=== PATIENT | female | born 1980 | race Caucasian/White ===

== ENCOUNTER → 2017-07-15 12:30 | Outpatient (CLI) | payer SELFPAY ==
--- NOTE | 2017-07-15 12:35 | US_ITS ---
STUDY: SECOND AND THIRD TRIMESTER OBSTETRICAL ULTRASOUND REASON FOR EXAM: Female, 37 years old. Follow-up of placenta previa. LMP: 03/02/2017 TECHNIQUE: Transabdominal PRIOR ULTRASOUND: None. FINDINGS: There is a single intrauterine fetus. The fetus is in a breech presentation. There is demonstrated cardiac activity with a heart rate of 160 bpm. There is a normal amniotic fluid volume. The largest amniotic fluid pocket measures 5.7 cm. The placenta is posterior and low lying but not previa in location. The edge of the placenta is 2 cm from the cervix. There are Grade 1 placental changes. The cervix measures 3.9 cm in length. The adnexal regions are not visualized. BIOMETRY: BPD: 4.3: 19 weeks, 0 days HC: 16.5: 19 weeks, 2 days AC: 13.9: 19 weeks, 3 days FL: 2.9: 18 weeks, 6 days CI: FL/BPD: FL/HC: FL/AC: HC/AC: age by current US: 19 weeks, 1 days. VIKRAM by current US: 12/08/2017. Estimated weight: 273 grams, +/- 40 grams, 34 %. age by prior US: weeks, days. VIKRAM by prior US: . Age by LMP: 19 weeks, 2 days. VIKRAM by LMP: 12/07/2017. ANATOMY: Gender: Male Cranium: Normal lateral ventricles. Normal choroid plexus. Normal cerebellum. Normal cisterna magna. Normal face, nose and lips. Chest: Normal 4-chamber heart. Abdomen/Pelvis: Normal diaphragm. The stomach is non-visualized. Normal abdominal wall. Normal cord insertion. Normal 3 vessel cord. Normal kidneys. Normal bladder. Spine: Normal cervical spine. Normal thoracic spine. Normal lumbar spine. Normal sacrum. Extremities: Normal bilateral upper extremities. Normal bilateral lower extremities. US/OB Anatomy Scan IMPRESSION: Single live fetus in a vertex presentation. No demonstrated anatomic abnormality except the stomach is not seen. Placenta is grade 1 and is low-lying, but no placenta previa. Cervix is closed. age by current US: 19 weeks, 1 days. VIKRAM by current US: 12/08/2017. Estimated weight: 273 grams, +/- 40 grams, 34 %. Electronically Signed: Manuel Luevano MD at 15:07 EDT , Service support ,
== END ==
PROVIDERS: Visit Provider Obstetrics & Gynecology
DX: O44.02 Complete placenta previa NOS or without hemorrhage, second trimester (principal); Z3A.19 19 weeks gestation of pregnancy
CPT/HCPCS: 76805

== ENCOUNTER → 2017-09-10 12:04 | Outpatient (CLI) | payer SELFPAY ==
--- NOTE | 2017-09-10 12:08 | US_ITS ---
STUDY: SECOND AND THIRD TRIMESTER OBSTETRICAL ULTRASOUND - LIMITED REASON FOR EXAM: Female, 37 years old. Follow-up placenta previa. LMP: March 02, 2017. PRIOR ULTRASOUND: July 15, 2017. TECHNIQUE: Transabdominal ultrasound evaluation was performed. FINDINGS: There is a single intrauterine fetus. The fetus is in a variable presentation. There is demonstrated cardiac activity with a heart rate of 142 bpm. There is a normal amniotic fluid volume. The largest amniotic fluid pocket measures 4.47 cm. The amniotic fluid index (MALIA) is 14.2 cm. The placenta is posterior in location and is not low lying. There are Grade 0 placental changes. The cervix measures 3.83 cm in length. BIOMETRY: BPD: 6.89 cm: 27 weeks, 5 days HC: 26.28 cm: 28 weeks, 5 days AC: 24.31 cm: 28 weeks, 5 days FL: 5.04 cm: 27 weeks, 1 days Age by LMP: 27 weeks, 3 days. VIKRAM by LMP: December 07, 2017. age by prior US: 27 weeks, 2 days. VIKRAM by prior US: December 08, 2017. age by current US: 28 weeks, 1 days. VIKRAM by current US: December 02, 2017. Estimated weight: 1167 grams, +/- 170 grams, 61 percentile. US/OB Limited With Biometrics IMPRESSION: 1. Live single intrauterine at 28 weeks, 1 day. VIKRAM is December 02, 2017. There is been adequate interval growth since the prior ultrasound. 2. EFW of 1161 g. 3. MALIA of 14.2 cm. 4. Posterior grade 0 placenta. There is no evidence of low-lying placenta or placenta previa. 5. Variable presentation. Electronically Signed: Elver Aguilar DO at 14:34 EDT Tel [phone], Service support ,
== END ==
PROVIDERS: Visit Provider Obstetrics & Gynecology
DX: O44.02 Complete placenta previa NOS or without hemorrhage, second trimester (principal); O09.90 Supervision of high risk pregnancy, unspecified, unspecified trimester; Z3A.00 Weeks of gestation of pregnancy not specified
CPT/HCPCS: 76816

== ENCOUNTER 2017-12-07 10:00 | Inpatient (IN) | payer SELFPAY ==
[2017-12-07] MEDS: Lactated Ringers 1,000 ML 999 ML IV (10:13)
--- NOTE | 2017-12-07 10:28 | PCM.HP.OB ---
- Problem List (1) Active labor Status: Acute (2) macrosomia Status: Acute (3) Supervision of high risk , antepartum Status: Acute Comment: cocare with carol singletary (4) Family history of nephrotic syndrome Status: Acute History Date of Admission: 12/07/17 Final VIKRAM: 12/07/17 Gestational age: 40 Weeks and 0 Days History of this : This is a 37 year-old, at 40 weeks gestational age presents completely dilated with high presenting part. EFW is 4500 g on bedside ultrasound today. she was planning a home but the mosaic layer referred her here for delivery due to concern for a large baby. Allergies No Known Allergies Allergy (Verified 07/15/17 11:56) Home Medications: Home Medications Vits [Prenatabs FA] 1 tab PO DAILY 05/23/16 Smoking Status: Never smoker Alcohol: None Number of Fetus(es): 1 Heart Tracin mod abhishek no decels cat I tracing TOCO Analysis: q 2 days History Past Pregnancies: Past Pregnancies see attached history Delivery Date Name GA/Weeks Outcome Route Weight Gender Labor Length Anesthesia Delivery Location Provider FOB Labs: Mom's Problem List Problem Status Onset Code Active labor Acute macrosomia Acute O36.60X0 Mom's Labs & Results 12/07/17 12/07/17 12/07/17 10:18 10:18 10:18 WBC Pending RBC Pending Hgb Pending Hct Pending MCV Pending MCH Pending MCHC Pending RDW Pending RDW Differential Pending Plt Count Pending Neut % (Auto) Pending Absolute Neuts (auto) Pending Total Counted Pending Hemoglobin A1c Pending Blood Type Pending Antibody Screen Pending Social History Alleged father James Babb Smoking No Smoking Status Never smoker Expected Delivery Method: Spontaneous Vaginal, Primary Section Review of Systems Constitutional: Denies: Fever, Malaise Eyes: Denies: Blurred vision, Vision Change HEENT: Denies: Head Aches, Visual Changes Cardiovascular: Denies: Chest Pain, Palpitations Respiratory: Denies: Cough, Shortness of Breath, Wheezing Gastrointestinal: Reports: Abdominal Pain. Denies: Diarrhea, Nausea, Vomiting Genitourinary: Denies: Dysuria, Hematuria Musculoskeletal: Denies: Joint Pain, Muscle pain Skin: Denies: Lesions, Rash Neurological: Denies: Blurred vision, Focal weakness, Headaches Psychiatric: Denies: Anxiety, Depression Endocrine: Denies: Heat/ Cold Intolerance Hematologic/ Lymphatic: Denies: Easy Bruising, Easy Bleeding Physical Exam General: Alert, Cooperative, No apparent distress HEENT: Atraumatic, Normocephalic. Negative for: Thyromegaly, Lymphadenopathy Cardiovascular: Regular rate Lungs: Normal air movement Abdomen: Soft, Non Tender, Gravid Neurological: Deep Tendon Reflexes 2+/4 and Symmetrical, Neuro grossly intact. Negative for: Clonus SPICE ROOM WORKER: Normal external genitalia. Negative for: Vulvar lesions Estimated gestational size: Appropriate for gestational size Presentation: Cephalic Cervix Dilation (cm): 10 Assessment/Plan All Active Problems (Last Reviewed 07/15/17 @ 11:55 by Marilyn Mccormack) Active labor (Acute) macrosomia (Acute) Supervision of high risk , antepartum (Acute) Family history of nephrotic syndrome (Acute) Placenta previa antepartum in second trimester (Resolved) Prematurity of fetus (Resolved) This is a 37 year-old, at 40 weeks gestational age completely dilated discussed with patient- previous 8lb 15 ounces vaginal delivery with no shoulder dystocia, EFW 4500g and she is low risk for diabetes, patient has still intact membranes, so i discussed rupturing her and attempt at vaginal delivery, if minima ldescent will recommend primary cs. discussed low risk for shoulder dystocia and guidelines state primary cs should be recommended if 5000g EFW and hers is below this. patient and agree to a trial of pushing. patient previously declined labs, had normal anatomy scan. co care with mosaic layer carol singletary
--- NOTE | 2017-12-07 10:32 | HP.PCM_ITS ---
- Problem List (1) Active labor Status: Acute (2) macrosomia Status: Acute (3) Supervision of high risk , antepartum Status: Acute Comment: cocare with carol singletary (4) Family history of nephrotic syndrome Status: Acute History Date of Admission: 12/07/17 Final VIKRAM: 12/07/17 Gestational age: 40 Weeks and 0 Days History of this : This is a 37 year-old, at 40 weeks gestational age presents completely dilated with high presenting part. EFW is 4500 g on bedside ultrasound today. she was planning a home but the core laying machine operator referred her here for delivery due to concern for a large baby. Allergies No Known Allergies Allergy (Verified 07/15/17 11:56) Home Medications: Home Medications Vits [Prenatabs FA] 1 tab PO DAILY 05/23/16 Smoking Status: Never smoker Alcohol: None Number of Fetus(es): 1 Heart Tracin mod abhishek no decels cat I tracing TOCO Analysis: q 2 days History Past Pregnancies: Past Pregnancies see attached history Delivery Date Name GA/Weeks Outcome Route Weight Gender Labor Length Anesthesia Delivery Location Provider FOB Labs: Mom's Problem List Problem Status Onset Code Active labor Acute macrosomia Acute O36.60X0 Mom's Labs & Results 12/07/17 12/07/17 12/07/17 10:18 10:18 10:18 WBC Pending RBC Pending Hgb Pending Hct Pending MCV Pending MCH Pending MCHC Pending RDW Pending RDW Differential Pending Plt Count Pending Neut % (Auto) Pending Absolute Neuts (auto) Pending Total Counted Pending Hemoglobin A1c Pending Blood Type Pending Antibody Screen Pending Social History Alleged father James Babb Smoking No Smoking Status Never smoker Expected Delivery Method: Spontaneous Vaginal, Primary Section Review of Systems Constitutional: Denies: Fever, Malaise Eyes: Denies: Blurred vision, Vision Change HEENT: Denies: Head Aches, Visual Changes Cardiovascular: Denies: Chest Pain, Palpitations Respiratory: Denies: Cough, Shortness of Breath, Wheezing Gastrointestinal: Reports: Abdominal Pain. Denies: Diarrhea, Nausea, Vomiting Genitourinary: Denies: Dysuria, Hematuria Musculoskeletal: Denies: Joint Pain, Muscle pain Skin: Denies: Lesions, Rash Neurological: Denies: Blurred vision, Focal weakness, Headaches Psychiatric: Denies: Anxiety, Depression Endocrine: Denies: Heat/ Cold Intolerance Hematologic/ Lymphatic: Denies: Easy Bruising, Easy Bleeding Physical Exam General: Alert, Cooperative, No apparent distress HEENT: Atraumatic, Normocephalic. Negative for: Thyromegaly, Lymphadenopathy Cardiovascular: Regular rate Lungs: Normal air movement Abdomen: Soft, Non Tender, Gravid Neurological: Deep Tendon Reflexes 2+/4 and Symmetrical, Neuro grossly intact. Negative for: Clonus FLOUR BLENDER: Normal external genitalia. Negative for: Vulvar lesions Estimated gestational size: Appropriate for gestational size Presentation: Cephalic Cervix Dilation (cm): 10 Assessment/Plan All Active Problems (Last Reviewed 07/15/17 @ 11:55 by Marilyn Mccormack) Active labor (Acute) macrosomia (Acute) Supervision of high risk , antepartum (Acute) Family history of nephrotic syndrome (Acute) Placenta previa antepartum in second trimester (Resolved) Prematurity of fetus (Resolved) This is a 37 year-old, at 40 weeks gestational age completely dilated discussed with patient- previous 8lb 15 ounces vaginal delivery with no shoulder dystocia, EFW 4500g and she is low risk for diabetes, patient has still intact membranes, so i discussed rupturing her and attempt at vaginal delivery, if minima ldescent will recommend primary cs. discussed low risk for shoulder dystocia and guidelines state primary cs should be recommended if 5000g EFW and hers is below this. patient and agree to a trial of pushing. patient previously declined labs, had normal anatomy scan. co care with core laying machine operator carol singletary
[2017-12-07 10:38] LABS: Absolute Lymphocyte Count 0.94 X10^3/ul (0.83-4.51); Absolute Neutrophil Count 17.2 X10^3/uL (2.0-7.7); Basophil# 0.01 X10^3/uL; Basophil% 0.1 % (0-1); Hematocrit 40.6 % (37-47); Hemoglobin 13.8 g/dl (12.0-15.0); Lymphocyte # 0.94 X10^3/ul (4.0); Mean Corpuscular Hgb 31.7 pg (27.0-32.0); Mean Corpuscular Volume 93.1 fL (81-99); Mean Platelet Vol. 12.8 fl (6.2-12.0); Monocyte# 0.75 X10^3/uL; Neutrophil # 17.16 X10^3/uL (2.7-7.7); Neutrophil % 90.7 % (47-70); Platelet Count 117 K/mm3 (150-450); RBC Distribution Width CV 14.1 % (11.6-14.6); RBC Distribution Width SD 47.8 fl (35.1-43.9); Red Blood Count 4.36 M/mm3 (4.2-5.4); White Blood Count 18.9 K/mm3 (4.4-11.0)
[2017-12-07 10:40] LABS: POSITIVE COUNT NO; POSITIVE DIFFERENTIAL NO; POSITIVE MORPHOLOGY NO
[2017-12-07 11:01] LABS: Hemoglobin A1c 5.4 % (4.2-6.3)
[2017-12-07] MEDS: Oxytocin 10 UNITS/ML Vial IM (11:20)
--- NOTE | 2017-12-07 11:23 | PCM.OB.VAG ---
- Problem List (1) Active labor Status: Acute (2) macrosomia Status: Acute (3) Supervision of high risk , antepartum Status: Acute Comment: cocare with carol singletary (4) Family history of nephrotic syndrome Status: Acute Vaginal Delivery Maternal Presentation: Active Labor presents IAL completely dilated suspect macrosomia Amniotic Membrane Rupture Type: Artificial Amniotic Fluid Description: Clear Final VIKRAM: 12/07/17 Gestational age: 40 Weeks and 0 Days Surgery/ Procedure Performed: Spontaneous Vaginal Delivery Type of Anesthesia: None Description of Procedure: Patient began pushing and delivered the head in the TYLER presentation. The head was delivered atraumatically. The anterior and posterior shoulders delivered without complication followed by the rest of the and the infant was placed on the maternal abdomen. Delayed cord clamping was employed for approximately 60 seconds. Cord was clamped and cut and gentle traction was applied to the cord and the placenta delivered spontaneously immediately following it was noted to be intact with three-vessel cord. The perineum and vagina were inspected and noted to have no laceration. EBL was 100 cc. Patient and tolerated delivery well. Presentation: TYLER Placental Delivery Description: Spontaneous Placenta Disposition: [facility] Cord Entanglement: None Estimated Blood Loss: 100 A gender: Male Episiotomy Description: None Laceration: None Medications given after delivery: IV Pitocin Complications: None
[2017-12-07 11:39] VITALS: BMI 32.9
[2017-12-07] MEDS: Carboprost Tromethamine 250 MCG/ML Ampul IM (12:10)
[2017-12-07 12:43] LABS: Group B Strep DNA By PCR Negative (Negative); Internal Control PASS; Probe Check PASS; Specimen Processing Control PASS
[2017-12-07 12:45] LABS: Chlamydia Trachomatis by PCR Negative (Negative); Neisserai gonorrhoeae by PCR Negative (Negative); Probe Check PASS; Sample Adequacy Control PASS; Specimen Processing Control PASS
[2017-12-07] MEDS: Naproxen 250 MG Tablet PO (13:07)
[2017-12-07 13:15] VITALS: BP 153/82; PULSE 111; RESP 18; TEMP 36.2
--- NOTE | 2017-12-07 14:48 | NURSING ---
HIV not done this , previous labs drawn in hospital non reactive.
[2017-12-07 17:40] VITALS: BP 144/86; PULSE 95; RESP 18; TEMP 36.6
[2017-12-07 20:15] VITALS: BP 125/72; PULSE 105; RESP 16; TEMP 37
[2017-12-07] MEDS: Acetaminophen 325 MG Tablet PO (20:21)
[2017-12-08] VITALS: BP 127/72; PULSE 91; RESP 16; TEMP 36.9
[2017-12-08 04:00] VITALS: BP 131/80; PULSE 93; RESP 16; TEMP 36.4
[2017-12-08 08:30] VITALS: BP 134/78; PULSE 105; RESP 18; TEMP 36.8
[2017-12-08] MEDS: Prenatal Vits Tablet 1 TABLET PO (10:55)
[2017-12-08 14:50] VITALS: BP 128/72; PULSE 100; RESP 18; TEMP 36.3
--- NOTE | 2017-12-08 16:00 | PCM.PN.OB ---
Patient Problems: Active and Suspected Problems (Last Reviewed 07/15/17 @ 11:55 by Marilyn Mccomrack) Active labor (Acute) macrosomia (Acute) Subjective: doing well n ocp sob n v, having some elft foot drop that is improving spontaneously, states she felt a zing in her leg when she was pushing and pulling back on her knees and it has hurt since. - Physical Exam General: Alert, Oriented x3 Vital Signs Temp Pulse Resp BP 98.3 F 105 H 18 134/78 H 12/08/17 08:30 12/08/17 08:30 12/08/17 08:30 12/08/17 08:30 Oxygen Delivery Method Room Air Weight: 180 lb Body Mass Index (BMI) 32.9 Intake and Output for Last 24 Hours 12/06/17 12/07/17 12/08/17 23:59 23:59 23:59 Intake Total 400 / 400 Output Total 450 / 450 Balance -50 / -50 Medical Necessity - Tobacco Use Smoking Status: Never smoker Assessment/Plan All Active Problems (Last Reviewed 07/15/17 @ 11:55 by Marilyn Mccormack) Active labor (Acute) macrosomia (Acute) Supervision of high risk , antepartum (Acute) Family history of nephrotic syndrome (Acute) Placenta previa antepartum in second trimester (Resolved) Prematurity of fetus (Resolved) s/p routine care dc home tomorrow, monitor neuro symptoms but improving
--- NOTE | 2017-12-08 16:01 | PCM.DCVAG ---
Discharge Diet: No Restrictions Discharge Activity: Return to Normal Activity, May not drive while taking narcotic pain medications., May Shower May resume sexual activity in: 4-6 weeks Call your doctor if your incision/area has: Continuous Slow Oozing, Sudden Increased Bleeding, Increased Pain/ Swelling, Increased Redness, Foul Smelling Discharge Additional Instructions: If you experience any of the following, contact your healthcare provider. Bleeding that soaks a pad every hour for 2 hours Fever 100.4 or higher Unrelieved incision or abdominal pain Swelling, redness, discharge or bleeding from your incision or episiotomy site Your incision begins to separate Problems urinating (including inability to urinate or burning while urinating). Visual changes Severe headache Flu-like symptoms Pain or redness in one of both of your breasts Pain, warmth, tenderness or swelling in your legs, especially the calf area Frequent nausea and vomiting Symptoms of depression or anxiety If you experience any of the following, call 911 or go to the nearest Emergency Room. Chest pain Problems breathing Seizure activity Partial or complete paralysis of a body part, slurred speech, weakness or drooping of the face, or a sudden inability to walk or hold your balance Allergies/Adverse Reactions: Allergies No Known Allergies Allergy (Verified 12/07/17 11:40) Medications to take at Discharge Vits [Prenatabs FA] 1 tab PO DAILY 05/23/16 Please Follow Up With: Urvashi Molina MD - [phone] When: Call to make an appointment with your doctor in 6 weeks. If you had elevated Blood pressure or 4th degree laceration you will need to be seen in 2 weeks. Primary Care Physician: Care Physician,No Primary [Primary Care Provider] - Test Results: Test results from this visit will be discussed in further detail at your follow-up appointment, if applicable.
--- NOTE | 2017-12-08 16:02 | DCINST_ITS ---
Discharge Diet: No Restrictions Discharge Activity: Return to Normal Activity, May not drive while taking narcotic pain medications., May Shower May resume sexual activity in: 4-6 weeks Call your doctor if your incision/area has: Continuous Slow Oozing, Sudden Increased Bleeding, Increased Pain/ Swelling, Increased Redness, Foul Smelling Discharge Additional Instructions: If you experience any of the following, contact your healthcare provider. * Bleeding that soaks a pad every hour for 2 hours * Fever 100.4 or higher * Unrelieved incision or abdominal pain * Swelling, redness, discharge or bleeding from your incision or episiotomy site * Your incision begins to separate * Problems urinating (including inability to urinate or burning while urinating). * Visual changes * Severe headache * Flu-like symptoms * Pain or redness in one of both of your breasts * Pain, warmth, tenderness or swelling in your legs, especially the calf area * Frequent nausea and vomiting * Symptoms of depression or anxiety If you experience any of the following, call 911 or go to the nearest Emergency Room. * Chest pain * Problems breathing * Seizure activity * Partial or complete paralysis of a body part, slurred speech, weakness or drooping of the face, or a sudden inability to walk or hold your balance Allergies/Adverse Reactions: Allergies No Known Allergies Allergy (Verified 12/07/17 11:40) Medications to take at Discharge Vits [Prenatabs FA] 1 tab PO DAILY 05/23/16 Please Follow Up With: Urvashi Molina MD - [phone] When: Call to make an appointment with your doctor in 6 weeks. If you had elevated Blood pressure or 4th degree laceration you will need to be seen in 2 weeks. Primary Care Physician: Care Physician,No Primary [Primary Care Provider] - Test Results: Test results from this visit will be discussed in further detail at your follow- up appointment, if applicable.
[2017-12-08 20:03] VITALS: BP 104/61; PULSE 95; RESP 16; TEMP 36.6; O2SAT 95
[2017-12-09 02:03] VITALS: BP 117/76; PULSE 83; RESP 16; TEMP 36.7; O2SAT 96
[2017-12-09 09:20] VITALS: BP 127/77; PULSE 88; RESP 16; TEMP 36.6
[2017-12-09 13:54] VITALS: BP 127/69; PULSE 93; RESP 16; TEMP 36.4
[2017-12-09 14:00] VITALS: BP 129/86; PULSE 93; RESP 16; TEMP 36.4
== END 2017-12-09 15:10 | disposition home or self-care (01) | DRG 807 ==
PROVIDERS: Admitting Provider Obstetrics & Gynecology; Referring Provider Obstetrics & Gynecology; Visit Provider Obstetrics & Gynecology
DX: O36.63X0 Maternal care for excessive fetal growth, third trimester, not applicable or unspecified (principal); Z37.0 Single live birth; Z3A.40 40 weeks gestation of pregnancy
CPT/HCPCS: 59050; 76815; 83036; 85025; 86850; 86900; 87081; 87491; 87591; 87653; 99218; J7120; G0378

== ENCOUNTER 2021-10-10 11:00 | Inpatient (IN) | payer SELFPAY ==
[2021-10-10] VITALS (18 sets, daily range): BP systolic 114–142; BP diastolic 55–86; PULSE 83–111; RESP 16; TEMP 36.2–37.1; O2SAT 95–100; BMI 34.5
[2021-10-10] MEDS: Lactated Ringers 1,000 ML 999 ML IV (11:35)
[2021-10-10] MEDS: Acetaminophen 500 MG Tablet 1000 MG PO ×3 (12:00→23:55)
[2021-10-10 12:03] LABS: Mucous, Urine 0 SEEN /hpf (<or=2+)
[2021-10-10 12:07] LABS: Absolute Lymphocyte Count 1.03 X10^3/uL (0.83-4.51); Absolute Neutrophil Count 8.8 X10^3/uL (2.0-7.7); Basophil# 0.02 X10^3/uL; Basophil% 0.2 % (0-1); Eosinophil# 0.02 X10^3/uL; Eosinophils% 0.2 % (0-5); Hematocrit 34.7 % (37-47); Hemoglobin 11.3 g/dL (12.0-15.0); Lymphocyte # 1.03 X10^3/ul (0.83-4.51); Lymphocyte % 9.8 % (19-41); Mean Corp Hgb Conc 32.6 g/dL (32-36); Mean Corpuscular Hgb 27.2 pg (27.0-32.0); Mean Corpuscular Volume 83.6 fL (81-99); Mean Platelet Vol. 13.1 fl (6.2-12.0); Monocyte# 0.62 X10^3/uL; Monocyte% 5.9 % (0-10); NRBC Flagged by Analyzer 0 % (0-5); Neutrophil % 83.3 % (47-70); Platelet Count 132 K/mm3 (150-450); RBC Distribution Width SD 45.2 fl (35.1-43.9); Red Blood Count 4.15 M/mm3 (4.2-5.4); White Blood Count 10.6 K/mm3 (4.4-11.0)
[2021-10-10] MEDS: Sodium Citrate/Citric Acid 30 ML UDC PO (12:08)
[2021-10-10 12:13] LABS: Color, Urine Yellow (Yellow); Glucose, Dipstick Normal (Normal); Leukocyte Esterase-Dipstick 25 /ul (Negative); Nitrite-Dipstick Negative (Negative); Occult Blood-Urine 250 /ul (Negative); Protein-Dipstick 30 mg/dl (Negative); Specific Gravity, Urine 1.025 (1.002-1.030); Urine Bilirubin Dipstick Negative (Negative); Urine Clarity Cloudy (Clear); Urine Urobilinogen Normal (Normal)
[2021-10-10 12:15] LABS: Bedside Glucose 90 mg/dL (74-106)
[2021-10-10 12:17] LABS: Ketone-Dipstick 150 mg/dl (Negative)
[2021-10-10] MEDS: Cefazolin 2 GM in 0.9% Normal Saline 100 ML IV (12:27)
--- NOTE | 2021-10-10 12:27 | HP.PCM.OB_ITS ---
HPI - General General Date of Admission: 10/10/21 HPI Narrative MYLA MOTT, is a 41 F who presents with clear SROM for almost 12 hours and malpresentation shoulder and oblique. decision for primary . she hsa received care by manager community carol singletary, has been transverse unstable lie with AGA on US Maternal Data Information VIKRAM Calculator Estimated Delivery Date Method Current WG Current Estimate 10/26/21 Manual 37w 6d PFSH PFSH Medical History (Updated 10/11/21 @ 15:[address] Urvashi Molina MD) History of pre-term labor Home Medications vits,calcium no.78-iron fumarate-folic acid 29 mg-1 mg tablet 1 tab PO DAILY 05/23/16 [History Last Taken 10/09/21 06:00] naproxen 500 mg tablet 500 mg PO BID PRN PRN Pain #60 tabs 10/11/21 [Rx Last Taken Unknown] oxycodone-acetaminophen 5 mg-325 mg tablet 1 - 2 tab PO Q4H PRN PRN Pain 3 days #15 tabs 10/11/21 [Rx Last Taken Unknown] Allergy/AdvReac Type Severity Reaction Status Date / Time No Known Allergies Allergy Verified 10/10/21 11:26 Social History (Updated 07/15/17 @ 12:[address] 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 Date Name GA/Weeks Outcome Route Bth Weight Infant Gen Labor Lgth Anesthesia Del Locatn Provider FOB Unknown 2006 Anthony Unknown 2008 Kami 38 live - full term Unknown 2012 Jolenna 38 live - full term Unknown 2015 Isidraa 36 live - Unknown 2016 Govind 36 live - Delivery Date: Last Updated by: Urvashi Molina MD nephrotic syndrome Visit Details OB Flowsheet Initial Weight: Not Recorded Date -?-?-?-?-?-?-?-?-?-?-?-?- EGA Weight BP Urine Prot -?-?-?-?-?-?-?-?-?-?-?-?- Glucose FHR FuHt Pres Dilation -?-?-?-?-?-?-?-?-?-?-?-?- Effaced St Visit Note 10/10/21 -?-?-?-?-?-?-?-?-?-?-?-?- 37w 5d 192 lb 137/86 142/82 136/83 137/86 125/80 122/76 123/80 127/78 118/69 118/67 121/69 121/71 30 mg/dl (Negative) H -?-?-?-?-?-?-?-?-?-?-?-?- -?-?-?--?-?-?-?-?-?-?-?-?- NST FHR Rate Baby A Baseline: 130 Variability:: Moderate Accelerations:: 15 x 15 Decelerations:: None NST Reactive:: Yes FHR Category:: Category I Uterine Activity:: irregular ROS Constitutional Constitutional: Reports systems reviewed and no addt'l complaints, except as d ocumented Eyes Eyes: Denies change in vision ENT HEENT: Reports systems reviewed and no addt'l complaints, except as documented; Denies headache(s) Cardiovascular Cardiovascular: Reports systems reviewed and no addt'l complaints, except as documented; Denies chest pain or dyspnea Respiratory/Chest Respiratory/Chest: Reports systems reviewed and no addt'l complaints, except as documented Gastrointestinal Gastrointestinal: Reports systems reviewed and no addt'l complaints, except as documented; Denies abdominal pain Genitourinary Genitourinary: Reports systems reviewed and no addt'l complaints, except as documented, contractions Details: present (irregular) and movement Details: present; Denies dysuria or genital lesions Musculoskeletal Musculoskeletal: Reports systems reviewed and no addt'l complaints, except as documented Neurologic Neurologic: Reports systems reviewed and no addt'l complaints, except as documented Endocrine Endocrinology: Reports systems reviewed and no addt'l complaints, except as documented Vital Signs Vital Signs Vital Signs: 10/10/21 11:14 10/10/21 11:14 10/10/21 11:56 Pulse Rate 110 H Blood Pressure 137/86 H 142/82 H BP Systolic 137 142 BP Diastolic 86 82 Pulse Ox 10/10/21 11:56 10/10/21 11:57 10/10/21 11:57 Pulse Rate 103 H 111 H Blood Pressure BP Systolic BP Diastolic Pulse Ox 98 Weight Weight: 192 lb Body Mass Index (BMI) 34.5 Physical Exam Const alert, oriented x3, no apparent distress and healthy appearing HEENT normocephalic and moist oral mucous membranes Head and Scalp: atraumatic Neck full ROM, no lymphadenopathy, supple and thyroid normal General: trachea midline Lymph Lymphatic: no lymphadenopathy noted Chest inspection of chest normal Resp normal respiratory effort Cardio regular rate GI normal to inspection, nondistended, normoactive bowel sounds, soft to palpation and non-tender Inspection: gravid external exam normal Manual OB Exam: estimated gestational size appropriate, dilated, effaced and station Extremity normal to inspection General Extremity: Negative for edema Skin no rashes or lesions noted Neuro no focal motor deficits and deep tendon reflexes 2+ bilaterally Motor Exam: strength 5/5 throughout and clonus absent Psych mental status grossly normal Labs Labs Labs: Blood Type O POSITIVE Antibody Screen NEGATIVE Hct 28.2 % (37-47) L Hgb 9.0 g/dL (12.0-15.0) L Obstetrics US Syphilis Total Ab Non-reactive Rubella IgG Antibody Reactive (Nonreactive) Hep Bs Antigen Non-Reactive (Nonreactive) Chlamydia DNA (ADARSH) Negative (Negative) Neisseria gonorrhoeae DNA (ADARSH) Negative (Negative) HIV 1&2 Antibody Non-Reactive (Nonreactive) Group B Strep DNA Negative (Negative) Rhogam given: No Assessment & Plan (1) SROM (spontaneous rupture of membranes): (2) malpresentation: COMMENT: compound arm and shoulder presentation (3) Delivery by section: COMMENT: 10/10/21 LUANNE Villalobos (4) Family history of nephrotic syndrome: (5) Supervision of high risk , antepartum: COMMENT: cocare with carol singletary PLAN: Plan proceed with primary LTCS
[2021-10-10 12:34] LABS: Red Blood Cells-Urine 5-10 SEEN /hpf (0-5); Squamous Epithelial Cells - UA 5-10 SEEN /hpf (5-10)
[2021-10-10 12:35] LABS: White Blood Cells 0-5 SEEN /hpf (0-5)
[2021-10-10 12:36] LABS: Bacteria 2+ /hpf (None Seen)
[2021-10-10 12:41] LABS: Amphetamine Urine VISTA NEGATIVE (<1000 ng/mL); Barbiturate Urine VISTA NEGATIVE (< 200 ng/mL); Benzodiazepine Urine VISTA NEGATIVE (< 200 ng/mL); Cocaine Urine VISTA NEGATIVE (< 300 ng/mL); Ecstacy Urine VISTA NEGATIVE (< 500 ng/mL); Methadone Urine VISTA NEGATIVE (< 300 ng/mL); PCP Urine VISTA NEGATIVE (< 25 ng/mL); THC Urine VISTA NEGATIVE (< 50 ng/mL); Vista UDS pH Range 5
[2021-10-10 12:54] LABS: Rubella IgG Reactive (Nonreactive); Syphilis Antibodies Non-reactive
[2021-10-10 13:13] LABS: HIV - WCH Non-Reactive (Nonreactive); Hepatitis B Surface Antigen Non-Reactive (Nonreactive); Hepatitis C Antibody Non-Reactive (Nonreactive)
[2021-10-10 13:27] LABS: Group B Strep DNA By PCR Negative (Negative); Internal Control PASS; Probe Check PASS; Specimen Processing Control PASS
[2021-10-10 13:36] LABS: Chlamydia Trachomatis by PCR Negative (Negative); Neisserai gonorrhoeae by PCR Negative (Negative); Probe Check PASS; Sample Adequacy Control PASS; Specimen Processing Control PASS
[2021-10-10] MEDS: Oxytocin 30 units/NS 500 ml 30 UNITS/500 ML IV.SOLN 167 UNITS IV (13:40)
--- NOTE | 2021-10-10 14:37 | EX.PCM.OBRPT ---
Assessment & Plan (1) Delivery by section: COMMENT: 10/10/21 LUANNE Griselda (2) Family history of nephrotic syndrome: (3) Supervision of high risk , antepartum: COMMENT: cocare with carol singletary (4) malpresentation: COMMENT: compound arm and shoulder presentation (5) SROM (spontaneous rupture of membranes): Maternal Data Information VIKRAM Calculator Estimated Delivery Date Method Current WG Current Estimate 10/26/21 Manual 37w 6d Final VIKRAM Source: LMP Gestational age: 39 Details Operative Information Date of Procedure: 10/11/21 Pre-Operative Diagnosis: unstable lie malpresentation oblique arm and shoulder Post-Operative Diagnosis: same Indications for : Malpresentation Classification: HARI Procedure Type: low transverse cnc grinder #1: Norman Ramirez Type of Anesthesia: Spinal Special Medications: none Antibiotic Given: Ancef 2 grams IV x1 and Zithromax 500 mg/5 mL X1 Drain: Lester to straight drain Estimated Blood Loss: 800 Fluids Replaced: crystalloid Findings Description of Procedure: The patient was placed in the dorsal supine position with leftward tilt. Patient was prepped and draped in the normal sterile fashion. Pfannenstiel skin incision was made with the scalpel and carried through to the underlying layer of fascia with the scalpel. Fascia was nicked in the midline and the incision extended laterally. The rectus bellies were dissected off superiorly and inferiorly with out complication both sharply and bluntly. The peritoneum was entered digitally. The incision was stretched and a low transverse uterine incision was made with the scalpel. The shoulder was elevated up and then the 's head was delivered atraumatically followed by the anterior and posterior shoulders without complication the rest of the delivered. The cord was clamped and cut and the was handed off to awaiting nurse. The placenta was delivered spontaneously immediately following and was noted to be intact and have a three-vessel cord. The uterus was exteriorized cleared of all clots and debris, and the incision was closed in a double layer closure using #1 Monocryl. The ovaries and fallopian tubes were noted to be within normal limits. The uterus was returned to the maternal abdomen and gutters were cleared of all clots and debris. The peritoneum was closed with 3-0 Monocryl in a running fashion. Gloves were changed prior to fascial closure. Fascia was closed with 0 PDS in a running fashion. Subcutaneous tissue was copiously irrigated and the skin was closed with 3-0 Monocryl in a subcuticular fashion. Mepilex dressing was applied without complication. Patient was taken to recovery in stable condition. Amniotic Membrane Rupture Type: Spontaneous Amniotic Fluid Description: Clear Placental Delivery Description: Spontaneous Placenta Disposition: [facility] Cord Vessel Description: 3 Vessels Cord Entanglement: None Infant A Gender: Female Delayed Cord Clamping: Yes Complications Risks of Surgery Discussed w/Patient: Bleeding, Infection, Need for Future C-Sections and Injury to surrounding structure(s) including bowel and bladder Complications: none Admit VTE Documentation VTE Present on Admission: No VTE Mechan Device Prophylaxis: SCD's Multi Select Codes Urinary/Genital Urinary/Genital CPT Codes: 62129 delivery only
[2021-10-10] MEDS: Ketorolac 30 MG/ML Syringe IV ×2 (15:00→20:40)
[2021-10-10] MEDS: Lactated Ringers 1,000 ML 100 ML IV (16:56)
[2021-10-10] MEDS: 0.9% Saline Lock 10 ML Syringe IV ×2 (18:42→20:40)
[2021-10-11] MEDS: 0.9% Saline Lock 10 ML Syringe IV ×2 (02:45→09:12)
[2021-10-11] MEDS: Ketorolac 30 MG/ML Syringe IV ×2 (02:45→09:12)
[2021-10-11 05:00] VITALS: BP 107/56; PULSE 77; RESP 16; TEMP 36.3; O2SAT 96
[2021-10-11] MEDS: Acetaminophen 500 MG Tablet 1000 MG PO ×4 (05:50→23:58)
[2021-10-11 06:06] LABS: Hematocrit 28.2 % (37-47); Mean Corp Hgb Conc 31.9 g/dL (32-36); Mean Corpuscular Hgb 27.6 pg (27.0-32.0); Mean Corpuscular Volume 86.5 fL (81-99); Platelet Count 124 K/mm3 (150-450); RBC Distribution Width SD 46.7 fl (35.1-43.9); Red Blood Count 3.26 M/mm3 (4.2-5.4); White Blood Count 12.5 K/mm3 (4.4-11.0)
[2021-10-11 07:38] VITALS: BP 102/60; PULSE 81; RESP 16; TEMP 36; O2SAT 96
--- NOTE | 2021-10-11 07:38 | PCM.PN.OB ---
Subjective Subjective Patient doing well without complaints. Tolerating PO. Ambulating and voiding without difficulty. Feeding well. Denies chest pain, shortness of breath, calf pain/swelling, fevers, chills, lightheadedness. Objective Data Objective Data Vital Signs: Vital Signs Temp Pulse Resp BP Pulse Ox O2 Del Method 97.4 F L 77 16 107/56 L 96 Room Air 10/11/21 05:00 10/11/21 05:00 10/11/21 05:00 10/11/21 05:00 10/11/21 05:00 10/11/21 05:00 Oxygen Delivery Method Room Air Weight: 192 lb Body Mass Index (BMI) 34.5 Intake & Output: Intake and Output for Last 24 Hours 10/09/21 10/10/21 10/11/21 23:59 23:59 23:59 Intake Total 2481.67 / 2481.67 Output Total 1350 / 1350 1050 / 1050 Balance 1131.67 / 1131.67 -1050 / -1050 Lab / Micro Data Result Diagrams: 10/11/21 05:58 Labs: Laboratory Results - last 24 hr 10/10/21 11:35: WBC 10.6, RBC 4.15 L, Hgb 11.3 L, Hct 34.7 L, MCV 83.6, MCH 27.2, MCHC 32.6, RDW Std Deviation 45.2 H, RDW Coeff of Taz 15.0 H, Plt Count 132 L, MPV 13.1 H, Immature Gran % (Auto) 0.600, Neut % (Auto) 83.3 H, Lymph % (Auto) 9.8 L, Harlan % (Auto) 5.9, Eos % (Auto) 0.2, Baso % (Auto) 0.2, Absolute Neuts (auto) 8.8 H, Absolute Lymphs (auto) 1.03, Nucleated RBC % 0 10/10/21 11:35: Urine Color Yellow, Urine Clarity Cloudy, Urine pH 6.0, Ur Specific Marine 1.025, Urine Protein 30 H, Urine Glucose (UA) Normal, Urine Ketones 150 A*, Urine Occult Blood 250 H, Urine Nitrite Negative, Urine Bilirubin Negative, Urine Urobilinogen Normal, Ur Leukocyte Esterase 25 H, Urine RBC 5-10 SEEN, Urine WBC 0-5 SEEN, Ur Squamous Epith Cells 5-10 SEEN, Urine Bacteria 2+, Urine Mucus 0 SEEN 10/10/21 11:35: Syphilis Total Ab Non-reactive, Rubella IgG Antibody Reactive 10/10/21 11:35: Blood Type O POSITIVE, Antibody Screen NEGATIVE 10/10/21 11:35: Urine Opiates Screen NEGATIVE, Urine Methadone Screen NEGATIVE, Ur Barbiturates Screen NEGATIVE, Ur Phencyclidine Scrn NEGATIVE, Ur Amphetamines Screen NEGATIVE, MDMA (Ecstasy) Screen NEGATIVE, U Benzodiazepines Scrn NEGATIVE, Urine Cocaine Screen NEGATIVE, U Cannabinoids Screen NEGATIVE, Ur Drug Screen Comment 10/10/21 11:35: Hep Bs Antigen Non-Reactive, Hepatitis C Antibody Non-Reactive, HIV 1&2 Antibody Non-Reactive 10/10/21 11:35: Chlam trachomat DNA PCR Negative, N.gonorrhoeae DNA (PCR) Negative 10/10/21 11:35: Group B Strep DNA Negative, Specimen Comment Not Reportable 10/10/21 11:53: POC Glucose 90 10/11/21 05:58: WBC 12.5 H, RBC 3.26 L, Hgb 9.0 L, Hct 28.2 L, MCV 86.5, MCH 27.6, MCHC 31.9 L, RDW Std Deviation 46.7 H, RDW Coeff of Taz 15.0 H, Plt Count 124 L, MPV 13.0 H Micro: Microbiology 10/10/21 11:35 Nasal Secretion SARS-CoV-2 Antigen (Rapid) - Final Physical Exam Const alert and oriented x3 HEENT normocephalic Eyes PERRL Neck full ROM Resp normal respiratory effort GI soft to palpation GI Narrative: FF below U. Dressing dry and intact Palpation: tender other (appropriately) Assessment & Plan (1) Delivery by section: COMMENT: 10/10/21 LUANNE Villalobos PLAN: Plan s/p LTCS PPD # 1 1. routine post care 2. breast feeding- support given 3. rh positive 4. rubella immune 5. home today
[2021-10-11] MEDS: Senna/Docusate Sodium 1 Tablet PO (09:12)
[2021-10-11 12:04] VITALS: BP 114/59; PULSE 79; RESP 16; TEMP 36.3; O2SAT 96
[2021-10-11] MEDS: Naproxen 500 MG Tablet PO ×2 (14:27→22:22)
--- NOTE | 2021-10-11 15:52 | DCINST_ITS ---
Discharge Instructions Diet Discharge Diet: No restrictions Activity Discharge Activity: Return to Normal Activity, May Drive (when pain free and off narcotic pain meds), May Shower and May Take a Tub Bath (in 4 weeks) May resume sexual activity in: 6 weeks Weight Bearing Status: Full weight bearing Lifting Restrictions: under 30 lbs for 6 weeks Dressing / Incision Call your doctor if your incision/area has: Continuous Slow Oozing, Sudden Increased Bleeding, Increased Pain/ Swelling, Increased Redness, Foul Smelling Discharge and - Call your doctor if you observe: Fever of 101 or Higher, Using more than 1 pad per hour, Shortness of breath, Chest pain and Uncontrolled pain Suture Line Care: Avoid Pulling/Pushing and Avoid Pinching/Bending Change Dressing in: 1 week (leave open to air after removed) Remove Dressing in: 1 week (if present) Cleanse incision/area with: Soap & Water and Keep Dressing Clean & Dry Follow Up Care Please Follow Up With: Urvashi Molina MD When: Call to make an appointment with your doctor for a postop visit in 2 and 6 weeks. Test Results: Test results from this visit will be discussed in further detail at your follow- up appointment, if applicable. Discharge Plan Admission Admit Date/Time: 10/10/21 11:00 Attending Provider: Urvashi Molina Primary Care Provider: Care PhysicianKeely Primary Instructions Patient Instructions: After a Discharge Orders/Prescriptions Prescriptions: New oxycodone-acetaminophen [oxycodone-acetaminophen] 5-325 mg tablet 1 - 2 tab PO Q4H PRN PRN (Reason: Pain) 3 Days Qty: 15 0RF naproxen 500 mg tablet 500 mg PO BID PRN PRN (Reason: Pain) Qty: 60 1RF No Action vit,[id number] 1 TABLET tablet 1 tab PO DAILY Referrals / Follow Up: Care Physician,Keely Primary [Primary Care Provider] - Disposition Disposition (needs filled in before D/C Order can be placed): Home, Self Care
[2021-10-11 16:50] VITALS: BP 121/69; PULSE 84; RESP 15; TEMP 36.1; O2SAT 98
[2021-10-11 19:43] VITALS: BP 118/61; PULSE 80; RESP 16; TEMP 36.6; O2SAT 97
[2021-10-12 01:44] VITALS: BP 126/69; PULSE 87; RESP 18; TEMP 36.3
[2021-10-12] MEDS: Acetaminophen 500 MG Tablet 1000 MG PO (05:47)
[2021-10-12] MEDS: Naproxen 500 MG Tablet PO (05:48)
--- NOTE | 2021-10-12 08:06 | PCM.PN.OB ---
Subjective Subjective Patient doing well without complaints. Tolerating PO. Ambulating and voiding without difficulty. Feeding well. Denies chest pain, shortness of breath, calf pain/swelling, fevers, chills, lightheadedness. Stayed last night due to baby not having BM until late last pm Objective Data Objective Data Vital Signs: Vital Signs Temp Pulse Resp BP Pulse Ox O2 Del Method 97.3 F L 87 18 126/69 H 97 Room Air 10/12/21 01:44 10/12/21 01:44 10/12/21 01:44 10/12/21 01:44 10/11/21 19:43 10/12/21 01:44 Oxygen Delivery Method Room Air Weight: 192 lb Body Mass Index (BMI) 34.5 Intake & Output: Intake and Output for Last 24 Hours 10/10/21 10/11/21 10/12/21 23:59 23:59 23:59 Intake Total 2481.67 / 2481.67 Output Total 1350 / 1350 1050 / 1050 Balance 1131.67 / 1131.67 -1050 / -1050 Lab / Micro Data Result Diagrams: 10/11/21 05:58 Micro: Microbiology 10/10/21 11:35 Nasal Secretion SARS-CoV-2 Antigen (Rapid) - Final Physical Exam Const alert and oriented x3 HEENT normocephalic Eyes PERRL Neck full ROM Resp normal respiratory effort GI soft to palpation GI Narrative: FF below U. Dressing dry and intact Palpation: tender other (appropriately) Assessment & Plan (1) Delivery by section: COMMENT: 10/10/21 LUANNE Villalobos PLAN: Plan s/p LTCS PPD # 2 1. routine post care 2. breast feeding- support given 3. rh positive 4. rubella immune 5. today
[2021-10-12 08:07] VITALS: BP 118/78; PULSE 88; RESP 16; TEMP 36.1; O2SAT 98
== END 2021-10-12 10:05 | disposition home or self-care (01) | DRG 788 ==
PROVIDERS: Admitting Provider Obstetrics & Gynecology; Visit Provider Obstetrics & Gynecology
DX: O42.02 Full-term premature rupture of membranes, onset of labor within 24 hours of rupture (principal); O64.8XX0 Obstructed labor due to other malposition and malpresentation, not applicable or unspecified; Z37.0 Single live birth; Z3A.37 37 weeks gestation of pregnancy; Z84.1 Family history of disorders of kidney and ureter
CPT/HCPCS: 59050; 76815; 80307; 81001; 82962; 85025; 85027; 86703; 86762; 86780; 86803; 86850; 86900; 86901; 87081; 87340; 87426; 87491; 87591; 87653; 99218; J7120; A4216; G0378; J2405